=== PATIENT | male | born 1985 | race Two or more races ===

== ENCOUNTER 2017-12-20 13:44 | Outpatient (CLI) | payer MEDICAID ==
[2017-12-20 13:51] VITALS: BP 131/77
[2017-12-20] MEDS ORDERED: CARV6.252 PO (13:55)
[2017-12-20] MEDS ORDERED: LISI10TA5 PO (13:55)
[2017-12-20] MEDS ORDERED: BUPR-96 PO (13:55)
[2017-12-20] MEDS ORDERED: ASPI-1169 PO (13:55)
[2017-12-20] MEDS ORDERED: ATOR10TA PO (13:55)
[2017-12-20] MEDS ORDERED: ALBU8.5H8 IH (13:55)
[2017-12-20] MEDS ORDERED: QUET25TA PO (13:55)
[2017-12-20] MEDS ORDERED: FURO-144 PO (13:55)
[2017-12-20] MEDS ORDERED: MULT-24 PO (13:55)
== END 2017-12-20 23:59 | disposition home or self-care (01) ==
LOC: MSC 13:44
PROVIDERS: ATTEND Internal Medicine
DX: I50.22 Chronic systolic (congestive) heart failure (principal); I24.8 Other forms of acute ischemic heart disease; J45.909 Unspecified asthma, uncomplicated; Z72.0 Tobacco use; Z79.51 Long term (current) use of inhaled steroids; E66.8 Other obesity; F15.11 Other stimulant abuse, in remission